=== PATIENT | male | born 1955 | race Caucasian/White ===

== ENCOUNTER 2020-05-10 10:49 | Emergency (ER) | payer BC ==
[~2020-05-10] VITALS: Ht 177.8 cm; Wt 109.0 kg
[2020-05-10 10:49] VITALS: BP 110/68
--- NOTE | 2020-05-10 10:59 | PHYS DOC ---
Past History Past Medical History: CAD, Cancer, Diabetes, High Cholesterol Past Medical History prostate cancer Past Surgical History: Gastric Bypass Smoking: Non-smoker Alcohol Use: Rarely Drug Use: None General Adult EDM: Chief Complaint: ALLERGIC REACTION HPI: HPI: Patient is a 64 year old male who presents for evaluation after a wasp or bee sting on his hand and left side abdomen. 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 Patient took 2 Benadryl tablets prior to arrival. He is complaining of localized itching, redness and swelling only. There is no wheezing or throat swelling reported. Patient is in no acute distress on arrival Review of Systems: Review of Systems: Constitutional: Denies fever or chills Eyes: Denies change in visual acuity HENT: Denies nasal congestion or sore throat Respiratory: Denies cough or shortness of breath Cardiovascular: Denies chest pain or edema GI: Denies abdominal pain, nausea, vomiting, bloody stools or diarrhea : Denies dysuria Musculoskeletal: Denies back pain or joint pain Integument: Insect sting to right hand and abdomen Neurologic: Denies headache, focal weakness or sensory changes Endocrine: Denies polyuria or polydipsia Lymphatic: Denies swollen glands Psychiatric: Denies depression or anxiety Heart Score: Risk Factors: Risk Factors: DM, Current or recent (<one month) smoker, HTN, HLP, family history of CAD, obesity. Risk Scores: Score 0 - 3: 2.5% MACE over next 6 weeks - Discharge Home Score 4 - 6: 20.3% MACE over next 6 weeks - Admit for Clinical Observation Score 7 - 10: 72.7% MACE over next 6 weeks - Early Invasive Strategies Allergies: Allergies: Allergies Coded Allergies Type Severity Reaction Last Updated Verified Penicillins Allergy Unknown 05/10/20 Yes Physical Exam: PE: Constitutional: Well developed, well nourished, mild acute distress, non-toxic appearance. [] HENT: Normocephalic, atraumatic, bilateral external ears normal, oropharynx moist, no oral exudates, nose normal. [] Eyes: PERRL, EOMI, conjunctiva normal, no discharge. [] Neck: Normal range of motion, no tenderness, supple, no stridor. [] Cardiovascular:Heart rate regular rhythm, no murmur [] Lungs & Thorax: Bilateral breath sounds clear to auscultation [] Abdomen: Bowel sounds normal, soft, no tenderness. [] Skin: Warm, dry, no erythema, localized erythema right hand and left side abdomen. [] Back: No tenderness. [] Extremities: Minimal tenderness and swelling to right hand, no cyanosis, no clubbing, ROM intact, no edema. [] Neurologic: Alert and oriented, normal motor function, normal sensory function, no focal deficits noted. [] Psychologic: Affect normal, judgement normal, mood normal. [] EKG: EKG: [] Radiology/Procedures: Radiology/Procedures: [] Course & Med Decision Making: Course & Med Decision Making Pertinent Labs and Imaging studies reviewed. (See chart for details) [] Dragon Disclaimer: Dragon Disclaimer: This electronic medical record was generated, in whole or in part, using a voice recognition dictation system. 1140 stable, reaction is local and is improved at this time. Patient will get [id number] Benadryl. Prescription for Medrol Dosepak and EpiPen given. Patient is medically stable Departure Departure: Impression: Primary Impression: Bee sting Qualified Codes: T63.441A - Toxic effect of venom of bees, accidental (unintentional), initial encounter Disposition: HOME/RESIDENCE PRIOR TO ADM Condition: STABLE Referrals: ARIANNE GODOY (PCP) Patient Instructions: Bee, Wasp, or Hornet Sting Additional Instructions: Use [id number] Benadryl as directed. If the symptoms continue consider using the Medrol Dosepak. EpiPen given as backup for severe reaction Scripts Epinephrine (EPIPEN 2-MITZY) 0.3 Mg/0.3 Ml Auto.injct 1 SYR IM ONCE for severe allergic reaction for 1 Day, #1 PACKET 0 Refills Prov: KIERSTEN OCHOA DO 05/10/20 Methylprednisolone (MEDROL) 4 Mg Tab.ds.pk 1 PKG PO UD for allergic reaction, #1 PKG Prov: KIERSTEN OCHOA DO 05/10/20 Justification of Admission: Justification of Admission: Justification of Admission Dx: N/A KIERSTEN OCHOA DO May 10, 2020 10:59
[2020-05-10] MEDS ORDERED: methylPREDNISolone SOD SUCC PF 125 MG/2 ML VIAL. IM ONE (11:00)
[2020-05-10] MEDS ORDERED: FAMOTIDINE 20 MG TABLET PO ONE (11:00)
[2020-05-10] MEDS ORDERED: EPIN0.3A4 IM (11:42)
[2020-05-10] MEDS ORDERED: METH4TAB2 PO (11:42)
== END 2020-05-10 11:55 | disposition home or self-care (01) ==
LOC: ER 10:49
DX: T63.441A Toxic effect of venom of bees, accidental (unintentional), initial encounter (principal); L29.9 Pruritus, unspecified; I25.10 Atherosclerotic heart disease of native coronary artery without angina pectoris; E11.9 Type 2 diabetes mellitus without complications; E78.00 Pure hypercholesterolemia, unspecified; Z98.84 Bariatric surgery status; Z88.0 Allergy status to penicillin; Y92.89 Other specified places as the place of occurrence of the external cause
CPT/HCPCS: 96372; 99283; J2930

== ENCOUNTER → 2021-04-21 | Outpatient (CLI) | payer MEDICARE ==
[~2021-04-21] MED LIST: EPIN0.3A4 IM; METH4TAB2 PO
--- NOTE | 2021-04-21 15:10 | RAD ---
EXAM: Right foot 3 views. HISTORY: Toe pain. COMPARISON: None. FINDINGS: Three views of the right foot are obtained. No fractures are identified. Alignment is normal. Joint spaces are maintained. There is a moderate po sterior calcaneal spur. Atherosclerotic calcifications are noted. IMPRESSION: 1. No fracture. Electronically signed by: Esthela Ny MD (04/21/2021 3:08 PM) [facility]
== END ==
LOC: RAD 10:17
PROVIDERS: ATTEND Podiatrist Foot & Ankle Surgery
DX: S90.121A Contusion of right lesser toe(s) without damage to nail, initial encounter (principal); S92.501A Displaced unspecified fracture of right lesser toe(s), initial encounter for closed fracture; X58.XXXA Exposure to other specified factors, initial encounter; Y93.89 Activity, other specified; Y92.89 Other specified places as the place of occurrence of the external cause; Y99.8 Other external cause status
CPT/HCPCS: 73630